=== PATIENT | female | born 1935 ===

== ENCOUNTER 2022-12-03 23:54 | Inpatient (IN) | payer MEDICARE ==
[2022-12-04] MEDS ORDERED: NOREPINEPHRINE 8 MG/250 ML-D5W 250 ML IVPB SCH (03:00)
[2022-12-04] MEDS ORDERED: EPINEPHrine 4 MG in Dextrose 5% in Water 250 ML IV SCH (03:00)
[2022-12-04] MEDS ORDERED: Sodium Bicarb 50 MEQ/50 ML VIAL ONE ×2 (03:02→03:27)
[2022-12-04] MEDS ORDERED: Dextrose 5% in Water 1,000 ML IV PRN (03:03)
[2022-12-04] MEDS ORDERED: Dextrose 50% Abboject 50 ML SYRINGE SLOW IVP PRN (03:03)
[2022-12-04] MEDS ORDERED: Acetaminophen 650 MG Suppository PR PRN (03:05)
[2022-12-04] MEDS ORDERED: Acetaminophen 325 MG TAB PO PRN (03:05)
[2022-12-04] MEDS ORDERED: Ondansetron ODT 4 MG TAB PO PRN (03:05)
[2022-12-04] MEDS ORDERED: Ondansetron PF 4 MG/2 ML Vial IVP PRN (03:05)
[2022-12-04 03:23] LABS: Base Excess -16.8 mEq/L (-2.0 to +3.0); Calcium, Ionized (venous) 0.89 mmol/L (1.16-1.32); Chloride (VBG) 113 mmol/L (98-106); Hemoglobin (Hb) 10.1 g/dL (11.7-16.1); Potassium (VBG) 4.28 mmol/L (3.70-5.30); Sodium 141.3 mmol/L (133-146)
[2022-12-04 03:24] LABS: Actual Bicarbonate (HCO3v) 11 mEq/L (22-28); pH (venous) 7.13 (7.32-7.43)
[2022-12-04] MEDS ORDERED: Sodium Bicarb 50 MEQ/50 ML VIAL IVP SCH (03:30)
[2022-12-04] MEDS ORDERED: Meropenem 1 GM in Sodium Chloride 0.9% 100 ML IVPB SCH ×2 (03:30→04:00)
[2022-12-04 03:45] LABS: INR-International Normal Ratio 1.8; PTT 42.8 sec (22.9-36.1); Prothrombin Time 21.4 sec (12.0-14.7)
[2022-12-04 03:47] LABS: Mean Corpuscular Hemoglobin 34.9 pg (27.0-31.0); Mean Corpuscular Volume 99.7 fl (78.0-98.0); Mean Platelet Volume 9.2 fL (7.4-10.4); Platelet Count 142 10x3/uL (130-400); Red Blood Cell (RBC) Count 2.86 mill/uL (4.20-5.40); White Blood Cell (WBC) Count 24.9 10x3/uL (4.8-10.8)
[2022-12-04 03:55] LABS: ALT (SGPT) 67 U/L (8-55); AST (SGOT) 113 U/L (5-34); Albumin 2.5 g/dL (3.4-4.8); Alkaline Phosphatase 93 U/L (40-110); Anion Gap 21 mmol/L (10-20); BUN (Urea Nitrogen) 78 mg/dL (9.8-20.1); Bilirubin, Total 0.4 mg/dL (0.2-1.2); Calc. Creatinine Clearance 0 mL/min (70-130); Chloride 116 mmol/L (98-107); Estimated GFR 14; Globulin 2.1 g/dL (2.4-3.5); Glucose 265 mg/dL (83-110); Magnesium 1.9 mg/dL (1.6-2.6); Potassium 4.3 mmol/L (3.5-5.1); Protein, Total 4.6 g/dL (5.8-8.1); Sodium 142 mmol/L (136-145)
[2022-12-04 03:58] LABS: Calcium 6.6 mg/dL (7.8-10.44); Carbon Dioxide 9 mmol/L (23-31)
[2022-12-04 04:16] LABS: Anisocytosis SLIGHT = 6-15 cells (100X) (0-5/hpf); Band 29 % (5-11); Burr Cells SLIGHT = 2-5 cells (100X) (0-1/hpf); Large Platelets SLIGHT; MDiff Complete? YES; Macrocytosis SLIGHT = 6-15 cells (100X) (0-5/hpf); Monocytes 9 % (0-10); Neutrophil 62 % (42-75); Nucleated RBC 2 % (0); Ovalocytes SLIGHT = 2-5 cells (100X) (0-1/hpf); Platelet Morphology Comment Appears Adequate
[2022-12-04 04:33] LABS: Troponin I 0.026 ng/mL (< 0.028)
[2022-12-04 04:35] LABS: Hemoglobin 9.7 g/dL (12.0-16.0)
[2022-12-04] MEDS ORDERED: Sodium Bicarbonate 100 MEQ in Dextrose 5% in Water 1,000 ML IVP SCH (04:45)
[2022-12-04] MEDS ORDERED: Linezolid 600 MG in Premix Bag 1 BAG IVPB SCH (05:00)
[2022-12-04] MEDS ORDERED: Albumin 25% 25 GM/100 ML BOT IVPB SCH (05:00)
[2022-12-04 05:49] VITALS: BMI 24.5
[2022-12-04 06:59] LABS: Lactic Acid 7.6 mmol/L (0.5-2.2)
[2022-12-04 07:03] LABS: Troponin I 0.038 ng/mL (< 0.028)
[2022-12-04] MEDS ORDERED: Pantoprazole 40 MG VIAL IVP SCH (09:00)
[2022-12-04 09:06] LABS: Actual Bicarbonate (HCO3v) 15 mEq/L (22-28); Chloride (VBG) 111 mmol/L (98-106); Hemoglobin (Hb) 8.7 g/dL (11.7-16.1); Potassium (VBG) 3.98 mmol/L (3.70-5.30); pH (venous) 7.42 (7.32-7.43)
[2022-12-04] MEDS ORDERED: Insulin Regular 300 UNITS/3 ML VIAL SC PRN (09:06)
[2022-12-04 09:34] LABS: Anion Gap 19 mmol/L (10-20); BUN (Urea Nitrogen) 78 mg/dL (9.8-20.1); Calc. Creatinine Clearance 13 mL/min (70-130); Carbon Dioxide 15 mmol/L (23-31); Chloride 112 mmol/L (98-107); Estimated GFR 14; Glucose 234 mg/dL (83-110); Hemoglobin 8.2 g/dL (12.0-16.0); Sodium 142 mmol/L (136-145)
[2022-12-04 09:43] LABS: Calcium 6.6 mg/dL (7.8-10.44)
[2022-12-04] MEDS ORDERED: Meropenem 500 MG in Sodium Chloride 0.9% 100 ML IVPB SCH (13:00)
== END 2022-12-04 16:24 | disposition hospice, inpatient (51) | DRG 871 ==
LOC: CCU 12-04 02:54
PROVIDERS: ADMIT Student in an Organized Health Care Education/Training Program; ATTEND Hospitalist
PROC: 3E043XZ Introduction of Vasopressor into Central Vein, Percutaneous Approach (ICD-10-PCS; principal; 2022-12-04)
PROC: 3E04329 Introduction of Other Anti-infective into Central Vein, Percutaneous Approach (ICD-10-PCS; 2022-12-04)
DX: A41.9 Sepsis, unspecified organism (principal); G93.41 Metabolic encephalopathy; J18.9 Pneumonia, unspecified organism; R65.21 Severe sepsis with septic shock; K72.00 Acute and subacute hepatic failure without coma; N17.0 Acute kidney failure with tubular necrosis; E87.20 Acidosis, unspecified; E87.1 Hypo-osmolality and hyponatremia; I48.20 Chronic atrial fibrillation, unspecified; N39.0 Urinary tract infection, site not specified; G30.9 Alzheimer's disease, unspecified; Z66 Do not resuscitate; Z51.5 Encounter for palliative care; I50.9 Heart failure, unspecified; T50.995A Adverse effect of other drugs, medicaments and biological substances, initial encounter; F02.80 Dementia in other diseases classified elsewhere, unspecified severity, without behavioral disturbance, psychotic disturbance, mood disturbance, and anxiety; D53.9 Nutritional anemia, unspecified; E83.51 Hypocalcemia; L27.0 Generalized skin eruption due to drugs and medicaments taken internally; N18.9 Chronic kidney disease, unspecified; R00.1 Bradycardia, unspecified; Z79.82 Long term (current) use of aspirin; Z79.01 Long term (current) use of anticoagulants; Z79.899 Other long term (current) drug therapy
CPT/HCPCS: 76770; 80053; 82533; 82550; 82805; 83605; 83735; 83880; 84145; 84484; 85025; 85610; 85730; 86850; 86900; 86901; 87081; 93005; 93010; C9113; J0171; J1815; J2020; J2185; J3490; J7070; P9047

== ENCOUNTER 2022-12-04 16:29 | Inpatient (IN) | payer OTHER ==
[2022-12-04] MEDS ORDERED: Morphine 2 MG/ML VIAL SLOW IVP PRN ×2 (16:56→17:30)
[2022-12-04] MEDS ORDERED: Atropine Sulfate 1 mg/1 ml Vial IVP PRN (16:58)
[2022-12-04] MEDS ORDERED: Promethazine HCl 25 MG SUPP PR PRN (17:00)
[2022-12-04] MEDS ORDERED: Haloperidol Lactate 5 MG/ML VIAL SLOW IVP PRN (17:00)
[2022-12-04] MEDS ORDERED: Ondansetron PF 4 MG/2 ML Vial IVP PRN (17:00)
[2022-12-04] MEDS ORDERED: Hyoscyamine SL 0.125 MG TAB SL PRN (17:00)
[2022-12-04] MEDS ORDERED: Lorazepam 2 MG/ML VIAL SLOW IVP PRN ×2 (17:00→19:42)
[2022-12-04] MEDS: Morphine 4 MG/ML VIAL SLOW IVP SCH ×2 (20:53→22:47)
[2022-12-04] MEDS: Lorazepam 2 MG/ML VIAL SLOW IVP SCH ×2 (20:54→22:48)
[2022-12-05 00:29] VITALS: TEMP 97.4
[2022-12-05] MEDS: Morphine 4 MG/ML VIAL SLOW IVP SCH ×10 (00:44→18:43)
[2022-12-05] MEDS: Lorazepam 2 MG/ML VIAL SLOW IVP SCH ×10 (00:45→18:43)
[2022-12-05 00:53] VITALS: BMI 21.9
[2022-12-05 08:34] VITALS: BP 49/25
== END 2022-12-05 19:55 | disposition expired | DRG 951 ==
LOC: CCU 16:29 → SURG B 20:26
PROVIDERS: ADMIT Hospitalist; ATTEND Hospitalist
DX: Z51.5 Encounter for palliative care (principal); Z66 Do not resuscitate; A41.9 Sepsis, unspecified organism; R65.21 Severe sepsis with septic shock; J18.9 Pneumonia, unspecified organism; E87.20 Acidosis, unspecified; N39.0 Urinary tract infection, site not specified; N17.9 Acute kidney failure, unspecified; E87.1 Hypo-osmolality and hyponatremia; G30.9 Alzheimer's disease, unspecified; F02.80 Dementia in other diseases classified elsewhere, unspecified severity, without behavioral disturbance, psychotic disturbance, mood disturbance, and anxiety; I48.91 Unspecified atrial fibrillation; D64.9 Anemia, unspecified; E83.51 Hypocalcemia; Z79.01 Long term (current) use of anticoagulants; Z79.899 Other long term (current) drug therapy; Z79.82 Long term (current) use of aspirin
CPT/HCPCS: J2060; J2270; J2272